=== PATIENT | female | born 1990 | race Caucasian/White ===

== ENCOUNTER 2017-01-18 05:16 | Day surgery (SDC) | payer OTHER ==
[2017-01-16 16:11] VITALS: BMI 24.7
[2017-01-18] MEDS ORDERED: MIDAZOLAM HCL 2 MG/2 ML SINGLE DOSE VIAL ONE ×2 (09:08)
[2017-01-18] MEDS ORDERED: DEXAMETHASONE SOD PHOSPHATE 4 MG/1 ML VIAL ONE (09:34)
[2017-01-18] MEDS ORDERED: ACETAMINOPHEN 325 MG TABLET (FP) PO PRN (10:31)
[2017-01-18] MEDS ORDERED: IBUPROFEN 400 MG TABLET (FP) PO PRN (10:31)
--- NOTE | 2017-01-18 10:31 | HP ---
History & Physical Update - History History: No Change - Physical Physical: No Change - Assessment Assessment: No Change - Plan Plan: No Change
--- NOTE | 2017-01-18 10:33 | OP ---
Operative Note - Note: Operative Date: 01/18/17 Pre-Operative Diagnosis: Submucosal myoma Operation: Hysteroscopic myomectomy. Suction DC Post-Operative Diagnosis: Same as Pre-op Surgeon: Gali Maddox Anesthesia: General Estimated Blood Loss (mls): 20 Operative Report Dictated: Yes
[2017-01-18] MEDS ORDERED: PROMETHAZINE HCL 25 MG/1 ML VIAL IVPUSH PRN (10:38)
[2017-01-18] MEDS ORDERED: ONDANSETRON 4 MG/2 ML VIAL IVPUSH PRN (10:38)
[2017-01-18] MEDS ORDERED: oxyCODONE HCL 5 MG TABLET PO PRN (10:38)
[2017-01-18] MEDS ORDERED: LACTATED RINGERS SOLUTION 1,000 ML IV SCH (10:45)
--- NOTE | 2017-01-18 10:47 | OP ---
DATE OF OPERATION: 01/18/2017 PREOPERATIVE DIAGNOSIS: Submucosal myoma. OPERATION: Hysteroscopic myomectomy and suction dilation and curettage. POSTOPERATIVE DIAGNOSIS: Submucosal myoma. SURGEON: Gali Maddox MD ANESTHESIA: General. DESCRIPTION OF PROCEDURE: The patient was taken to the operating room and placed in dorsal lithotomy position, prepped and draped in the usual sterile fashion. A time-out was performed in accordance with hospital regulations. Speculum was placed in the vagina. Anterior lip of the cervix was grasped with a single-tooth tenaculum. The cervix was then dilated to accommodate the operative hysteroscope. Hysteroscopy was inserted, and an endometrial polyp was seen, and hysteroscopic myomectomy was done. A large amount of submucosal myoma anteriorly was also removed anteriorly from the patient's anterior portion of the uterus. The specimen was submitted to Pathology. The cavity was distorted due to the anterior myoma. The submucosal myoma was not able to be removed due to fluid residual. Procedure stopped. Suction dilation and curettage done. All particles of myoma were submitted to Pathology. All instruments were then removed. The patient tolerated the procedure well. Count was correct. GALI MADDOX M.D. [id number]
[2017-01-18 12:21] VITALS: TEMP 98
[2017-01-18 15:18] VITALS: BP 115/64; PULSE 92
--- NOTE | 2017-01-19 15:22 | PATH ---
Surgical Pathology Report Patient Name: ABHIJEET MAURER [facility]. Rec. #: [id number] /Age/Gender: 1990 (Age: 26) / F Account: [id number] Location: [facility] SUR[facility]ICAL Taken: 01/18/2017 Received: 01/18/2017 Reported: 01/19/2017 Physicians: Gali Maddox M.D. Specimen(s) Received UTERINE CONTENTS Clinical History Endometrial polyps Final Diagnosis UTERUS, HYSTEROSCOPIC MYOMECTOMY AND CURETTING: BENIGN ENDOMETRIAL POLYP, AND MYOMETRIAL TISSUE CONSISTENT WITH PORTIONS OF LEIOMYOMA IN THE PROPER CLINICAL CONTEXT. Electronically Signed Paul Harding M.D. Gross Description Received in formalin labeled "contents of uterus," is a 2 g, 3.3 x 2.5 x 0.3 cm aggregate of young, irregular, firm to rubbery portions of tissue, consistent with morcellated fibroids. Additionally, there is a 0.8 x 0.7 x 0.3 cm possible polyp. The specimen is entirely submitted in 3 cassettes as follows: 1-possible polyp; 2-8-[id number] tissue. /01/18/2017 saudi01/18/2017
== END 2017-01-18 14:25 | disposition home or self-care (01) ==
LOC: JASU-SURG 05:16
PROVIDERS: ATTEND Obstetrics & Gynecology
PROC: 0UB98ZZ Excision of Uterus, Via Natural or Artificial Opening Endoscopic (ICD-10-PCS; principal; 2017-01-18 09:00)
PROC: 0UDB7ZX Extraction of Endometrium, Via Natural or Artificial Opening, Diagnostic (ICD-10-PCS; 2017-01-18 09:00)
PROC: 0UJD8ZZ Inspection of Uterus and Cervix, Via Natural or Artificial Opening Endoscopic (ICD-10-PCS; 2017-01-18 09:00)
DX: D25.0 Submucous leiomyoma of uterus (principal)
CPT/HCPCS: 88305-TC; 94760

== ENCOUNTER 2018-10-18 11:49 | Emergency (ER) | payer OTHER ==
[2018-10-18 12:13] VITALS: BP 111/52; PULSE 81; TEMP 98.2; BMI 26.2
[2018-10-18] MEDS ORDERED: ACETAMINOPHEN 1000 MG/100 ML VIAL (NON FORMULARY) IVPB ONE (12:38)
[2018-10-18] MEDS ORDERED: SODIUM CHLORIDE 1,000 ML IV STA (12:38)
[2018-10-18] MEDS ORDERED: METOCLOPRAMIDE HCL INJECTION 10 MG/2 ML VIAL IVPUSH ONE (12:38)
--- NOTE | 2018-10-18 12:45 | PDOC ---
History of Present Illness - General Chief Complaint: Sore Throat Stated Complaint: ABD PAIN/ HEADACHE/ NAUSEOUS Time Seen by Provider: 10/18/18 12:31 History Source: Patient Exam Limitations: No Limitations - History of Present Illness Initial Comments: 10/18/18 12:41 HISTORY OF PRESENT ILLNESS: This a 28-year-old woman past medical history of migraines presents emergency department for evaluation of headaches, nausea, sore throat and abdominal pain. Patient reports symptoms been present for 3 days. Patient reports the headache is a throbbing sensation which is biparietal extending into the bitemporal regions. Patient reports the pain is consistent with her usual migraines only more intense. Although patient has been feeling some abdominal pain and nausea she has not vomited. She reports her last bowel movement was yesterday which was a normal formed stool without any blood. She denies any urinary or [employer] complaints. No recent travel or sick contacts. PAST MEDICAL HISTORY: see HPI SURGICAL HISTORY: Denies ALLERGIES: No known drug allergies REVIEW OF SYSTEMS General/Constitutional: Denies fever or chills. Denies weakness, weight change. HEENT: see HPI Cardiovascular: Denies chest pain or shortness of breath. Respiratory: Denies cough, wheezing, or hemoptysis. Gastrointestinal: see HPI Genitourinary: Denies dysuria, frequency, or change in urination. Musculoskeletal: Denies joint or muscle swelling or pain. Denies neck or back pain. Skin and breasts: Denies rash or easy bruising. Neurologic: see HPI Psychiatric: Denies depression or anxiety. Endocrine: Denies increased thirst. Denies abnormal weight change. Hematologic/Lymphatic: Denies anemia, easy bleeding, or history of blood clots. Allergic/Immunologic: Denies hives or skin allergy. Denies latex allergy. PHYSICAL EXAM General Appearance: Well-appearing, appropriately dressed. No apparent distress , no intoxication. HEENT: EOMI, PERRLA, normal ENT inspection, normal voice, TMs normal, pharynx normal. No conjunctival pallor. No photophobia, scleral icterus. Neck: Supple. Trachea midline. No tenderness, rigidity, carotid bruit, stridor , lymphadenopathy, or thyromegaly. Respiratory/Chest: Lungs CTAB. No shortness of breath, chest tenderness, respiratory distress, accessory muscle use. No crackles, rales, rhonchi, stridor , wheezing, dullness Cardiovascular: RRR. S1, S2. No JVD, murmur, bradycardia, tachycardia. Vascular Pulses: Dorsalis-Pedis (R): 2+, Dorsalis-Pedis (L): 2+ Gastrointestinal/Abdominal: Normal bowel sounds. Abdomen soft, non-distended. No tenderness or rebound tenderness. No organomegaly, pulsatile mass, guarding, hernia, hepatomegaly, splenomegaly. Lymphatic: No adenopathy, tenderness. Musculoskeletal/Extremities: Normal inspection. FROM of all extremities, normal capillary refill. Pelvis Stable. No CVA tenderness. No tenderness to extremities, pedal edema, swelling, erythema or deformity. Integumentary: Appropriate color, dry, warm. No cyanosis, erythema, jaundice or rash Neurologic: information resources director II-XII intact. Fully oriented, alert. Appropriate mood/affect. Motor strength 5/5. No appreciable EOM palsy, facial droop or sensory deficit. Past History - Past Medical History Allergies/Adverse Reactions: Allergies Allergy/AdvReac Type Severity Reaction Status Date / Time No Known Allergies Allergy Verified 10/18/18 12:08 Home Medications: Ambulatory Orders Ibuprofen [Motrin -] 600 mg PO QID PRN #28 tablet 01/18/17 Anemia: No Asthma: No Cancer: No Cardiac Disorders: Yes (heart murmur as a child) CVA: No COPD: No CHF: No Dementia: No Diabetes: No GI Disorders: No Disorders: Yes ("severe" UTI 2 months ago/kidney stones) HTN: No Hypercholesterolemia: No Kidney Stones: Yes Liver Disease: No Seizures: No Thyroid Disease: No - Surgical History Abdominal Surgery: No Appendectomy: No Cardiac Surgery: No Cholecystectomy: No Lung Surgery: No Neurologic Surgery: No Orthopedic Surgery: Yes (left knee) - Reproductive History Cervical CA: No Dysfunctional Uterine Bleeding: No Ectopic : No Endometrial CA: No Polycystic Ovaries: No Tubal Ligation: No - Immunization History Immunization Up to Date: Yes - Suicide/Smoking/Psychosocial Hx Smoking History: Current every day smoker Have you smoked in the past 12 months: Yes Number of Cigarettes Smoked Daily: 8 Information on smoking cessation initiated: No 'Breaking Loose' booklet given: 10/14/13 Hx Alcohol Use: No Drug/Substance Use Hx: No Substance Use Type: Alcohol Hx Substance Use Treatment: No *Physical Exam - Vital Signs Last Vital Signs Temp Pulse Resp BP Pulse Ox 98.2 F 81 16 111/52 L 100 10/18/18 12:08 10/18/18 12:08 10/18/18 12:08 10/18/18 12:08 10/18/18 12:08 Medical Decision Making - Medical Decision Making 10/18/18 12:43 A/P: 28-year-old woman with headache, sore throat, abdominal pain and nausea for 3 days Given normal physical exam this is likely a menstrual migraine as patient is due to get her period any day now. Insert IV Urinalysis Urine culture Urine testing Rapid strep testing Normal saline 1 L IV bolus Tylenol 1 g IV now Reglan 10 mg IV Benadryl 25 mg IV 10/18/18 14:47 Rapid strep testing is negative. Urinalysis is not suggestive of infection Patient reports cessation of pain after receiving medications for migraine. Patient currently 0/10 pain rated I will discharge the patient home to follow-up with her primary doctor for reevaluation. I discussed the physical exam findings, ancillary test results and final diagnoses with the patient. I answered all of the patient's questions. The patient was satisfied with the care received and felt comfortable with the discharge plan and treatment plan. The patient will call their primary care physician within 24 hours to arrange follow-up and will return to the Emergency Department with any new, persistent or worsening symptoms. Portions of this note have been documented using voice recognition software. As a result, errors may occur in the elephant tamer process. Effort has been made to correct all grammatical and elephant tamer error, but some may have been missed. *DC/Admit/Observation/Transfer Diagnosis at time of Disposition: Menstrual headache Qualifiers: Status migrainosus presence: with status migrainosus Intractability: not intractable Qualified Code(s): G43.821 - Menstrual migraine, not intractable, with status migrainosus - Discharge Dispostion Disposition: HOME Condition at time of disposition: Fair Decision to Admit order: No - Referrals Referrals: Mele Sepulveda DO [Staff Physician] - - Patient Instructions Additional Instructions: Take Tylenol or Motrin as needed for headaches. Keep a diary of all food to eat and activities performed prior to headaches starting. Make an appointment with her primary doctor for reevaluation within the next week. Return to emergency department for worsening headache, blurry vision, dizziness , nausea, vomiting or any other concerns. Thank you very much for for choosing us to provide emergent health care needs. - Post Discharge Activity Forms/Work/School Notes: Back to Work
[2018-10-18 12:59] LABS: PH,URINE 8.5 (5.0-8.0); URINE APPEARANCE Error; URINE BILIRUBIN NEGATIVE (NEGATIVE); URINE COLOR YELLOW; URINE GLUCOSE (UA) NEGATIVE (NEGATIVE); URINE KETONE NEGATIVE (NEGATIVE); URINE LEUK ESTERASE NEGATIVE (NEGATIVE); URINE NITRITE NEGATIVE (NEGATIVE); URINE PROTEIN NEGATIVE (NEGATIVE)
[2018-10-18] MEDS ORDERED: METOCLOPRAMIDE HCL INJECTION 10 MG/2 ML VIAL ONE (13:03)
[2018-10-18] MEDS ORDERED: ACETAMINOPHEN INJECTION 100 ML IVPB ONE (13:07)
== END 2018-10-18 14:55 | disposition home or self-care (01) ==
LOC: JERFT 11:49
PROC: 3E033NZ Introduction of Analgesics, Hypnotics, Sedatives into Peripheral Vein, Percutaneous Approach (ICD-10-PCS; principal; 2018-10-18)
PROC: 3E033GC Introduction of Other Therapeutic Substance into Peripheral Vein, Percutaneous Approach (ICD-10-PCS; 2018-10-18)
PROC: 3E0337Z Introduction of Electrolytic and Water Balance Substance into Peripheral Vein, Percutaneous Approach (ICD-10-PCS; 2018-10-18)
DX: G43.821 Menstrual migraine, not intractable, with status migrainosus (principal); F17.210 Nicotine dependence, cigarettes, uncomplicated; R01.1 Cardiac murmur, unspecified
CPT/HCPCS: 81003; 84703; 87070; 87880; 96361; 96374; 96375; 99282-25; J0131; J7030

== ENCOUNTER 2022-06-12 11:57 | Emergency (ER) | payer OTHER ==
[2022-06-12 12:08] VITALS: RESP 19; TEMP 98; BMI 31.8
[2022-06-12] MEDS ORDERED: ACETAMINOPHEN 325 MG TABLET (FP) PO ONE (13:21)
[2022-06-12] MEDS ORDERED: ACETAMINOPHEN 325 MG TABLET (FP) ONE (13:25)
[2022-06-12] MEDS ORDERED: DIPHTH,PERTUSS(ACELL),TET 0.5 ML DISP.SYRIN IM ONE ×2 (13:29→13:32)
[2022-06-12 14:15] VITALS: BP 126/88; PULSE 103
== END 2022-06-12 16:03 | disposition home or self-care (01) ==
LOC: JER 11:57 → JERFT 11:57
PROC: 3E0234Z Introduction of Serum, Toxoid and Vaccine into Muscle, Percutaneous Approach (ICD-10-PCS; principal; 2022-06-12)
DX: S00.83XA Contusion of other part of head, initial encounter (principal); R51.9 Headache, unspecified; W22.09XA Striking against other stationary object, initial encounter
CPT/HCPCS: 70450-TC; 90471; 90715; 99284-25